=== PATIENT | female | born 1975 | race Caucasian/White ===

== ENCOUNTER → 2018-01-10 | Outpatient (CLI) | payer OTHER ==
[2013-11-11 07:49] VITALS: BP 131/84
--- NOTE | 2018-01-10 15:40 | MG ---
HISTORY: SCREENING Comparison: October 30, 2015 and September 11, 2008 FINDINGS: Bilateral CC and MLO projections of the right and left breast were obtained. Scattered fibroglandula r tissue is seen to be present without significant interval change. No suspicious architectural dist ortion, mass or clustered microcalcifications can be observed to suggest malignancy. No skin thicken ing or nipple retraction is appreciated. No pathological lymphadenopathy can be identified. Benign- appearing calcifications are noted within the right and left breast. IMPRESSION: NO RADIOGRAPHIC EVIDENCE OF MALIGNANCY. ACR CATEGORY 2 - benign findings. FOLLOW-UP EXAM 1 YEAR. Diagnostic CAD was utilized and reviewed. * 0 (ZERO) - ASSESSMENT INCOMPLETE; ADDITIONAL IMAGING IS NEEDED. * 1/ (ONE) - NEGATIVE. * 2/II (TWO) - BENIGN FINDINGS. * 3/III (THREE) - PROBABLY BENIGN FINDING; SHORT INTERVAL FOLLOW-UP SUGGESTED. * 4/IV (FOUR) - SUSPICIOUS ABNORMALITY; BIOPSY SHOULD BE CONSIDERED. * 5/V - HIGHLY SUSPICIOUS OF MALIGNANCY; BIOPSY SHOULD BE PERFORMED. A NEGATIVE X-RAY REPORT SHOULD NOT DELAY BIOPSY IF A DOMINANT OR CLINICALLY SUSPICIOUS MASS IS PRESENT; 4 TO 8 PERCENT OF CANCERS ARE NOT IDENTIFIED BY X-RAY. A NEGA TIVE REPORT MAY REINFORCE THE CLINICAL IMPRESSION. ADENOSIS AND DENSE BREASTS MAY OBSCURE AN UNDERLY ING NEOPLASM. Reported By:
== END ==
LOC: RAD 08:54
PROVIDERS: ATTEND Obstetrics & Gynecology
DX: Z12.31 Encounter for screening mammogram for malignant neoplasm of breast (principal)
CPT/HCPCS: 77067

== ENCOUNTER 2020-12-19 16:44 | Observation (INO) ==
[2020-12-19] MEDS ORDERED: NS 1000 ML 1,000 ML IV ONE (17:02)
[2020-12-19] MEDS ORDERED: ZOFRAN INJ 4 MG VIAL IVP ONE ×2 (17:02→17:46)
[2020-12-19] MEDS ORDERED: ZOFRAN INJ 4 MG VIAL ONE ×3 (17:06→22:54)
[2020-12-19] MEDS ORDERED: NS 1000 ML 1,000 ML ONE (17:06)
--- NOTE | 2020-12-19 17:46 | DR.NAUSEAF ---
HPI Time Seen Time Seen by Provider: 12/19/20 17:45 Primary Care Physician Primary Care Physician: CHEYANNE HALL HPI Comment HPI Comment: PATIENT WITH A HISTORY OF VERTIGO COMPLAINS OF DIZZINESS, ROOM SPINNING 30 MINUTES PRIOR TO ARRIVAL ASSOCIATED WITH FREQUENT EMESIS. DENIES HEADACHE, BLURRED VISION AND ABDOMINAL PAIN. Complaints Chief Complaint Doctors Comments: FREQUENT EPISODES OF EMESIS ASSOCIATED WITH VERTIGO Chief Complaint:: PATIENT CAME TO ER REPORTS SUDDEN ONSET N/V DIZZINESS WHILE LYING IN TANNING BED. REPORTS LAST TIME SHE WAS DX WITH VERTIGO. 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 Other Past Surgical History Comment: REMOVAL OF CLOTS IN LUNGS, CARDIAC STENT, D&C Family History History of Family Medical Conditions: No Family Medical History: Diabetes Mellitus, Cancer, Coronary Artery Disease, Heart Failure, Sudden Cardiac and Hypertension Social History Alcohol Use: None Do you use any recreational Drugs:: No Lives With: Spouse Lives Where: Home Travel Risk Coronavirus risk:travel/contact w/high risk person: No Has patient experienced Coronavirus symptoms: No Infectious screening In the last 2 months have you had wt loss of >10#?: NO Have you had fever, night sweats or hemotysis?: No Have you traveled outside the country in the last 6 months?: No Isolation: Standard ROS Review of Systems Constitutional: No Symptoms Reported Eyes: No Symptoms Reported ENTM: No Symptoms Reported Respiratoy: No Symptoms Reported Cardiovascular: No Symptoms Reported Gastrointestinal/Abdominal: See HPI, Nausea and Vomiting Genitourinary: No Symptoms Reported Neurological: Dizziness Musculoskeletal: No Symptoms Reported Integumentary: No Symptoms Reported Hematologic/Lymphatic: No Symptoms Reported Endocrine: No Symptoms Reported Psychiatric: No Symptoms Reported All Other Systems: Reviewed and Negative PE Vital Signs Vitals: Temperature 97.5 F Pulse Rate 73 Respiratory Rate 21 Blood Pressure [Left Arm] 132/66 Blood Pressure 124/59 O2 Sat by Pulse Oximetry 97 General Limitations: No Limitations Head Head Exam: Normal Inspection and Atraumatic Eyes Eye exam: Normal Appearance, PERRL and EOMI ENT ENT Exam: Normal Exam and Normal Oropharynx Neck Neck Exam: Normal Inspection, Full ROM and Trachea Midline Chest Chest Inspection: Normal Inspection and Symmetric Chest Wall Rise Respiratory Respiratory Exam: Normal Lung Sounds Bilat Respiratory Exam: Bilateral: Clear to Auscultation Cardiovascular Cardiovascular Exam: Regular Rate and Normal Rhythm Abdominal Exam Abdominal Exam: Normal Inspection, Normal Bowel Sounds and Soft (NONTENDER) Extremities Extremities Exam: Normal Inspection and Full ROM Back Back Exam: Normal Inspection and Full ROM Psychiatric Psychiatric Exam: Normal Affect and Normal Mood MDM Differential Diagnosis Differential Diagnosis Comment: VERTIGO, INTRACTABLE EMESIS, DEHYDRATION COURSE Treatment Treatment: IV BOLUS NORMAL SALINE 1 LITER/HR, ZOFRAN 4MG IV X 2 DOSES, PHENERGAN 25MG IM Reevaluation 1st: Unchanged Consultation Call Returned: 19:40 Consultation Comments: DISCUSSED FINDINGS WITH DR BRUNNER FOR OBSERVATION Education/Counseling Educated On: Treatment and Diagnosis ROR Labs Reviewed Laboratory Results Reviewed?: Yes Result Diagrams: 12/19/20 17:11 12/19/20 17:11 Laboratory: WBC 9.2 X10^3/uL (3.6-10.0) 12/19/20 17:11 RBC 4.37 X10^6/uL (3.5-5.4) 12/19/20 17:11 Hgb 13.3 g/dL (12.0-16.0) 12/19/20 17:11 Hct 39.3 % (36.0-47.0) 12/19/20 17:11 MCV 89.9 fL (80.0-100.0) 12/19/20 17:11 MCH 30.4 pg (27.0-34.0) 12/19/20 17:11 MCHC 33.8 g/dL (33.0-35.0) 12/19/20 17:11 RDW 14.6 % (11.6-16.5) 12/19/20 17:11 Plt Count 181 X10^3/uL (150.0-450.0) 12/19/20 17:11 MPV 9.4 fL (7.4-11.0) 12/19/20 17:11 Neut % (Auto) 51.5 % (42.0-75.0) 12/19/20 17:11 Lymph % (Auto) 38.9 % (21.0-51.0) 12/19/20 17:11 [place] % (Auto) 6.5 % (0.0-13.0) 12/19/20 17:11 Eos % (Auto) 1.9 % (0.9-2.9) 12/19/20 17:11 Baso % (Auto) 1.2 % (0.2-1.0) H 12/19/20 17:11 Neut # (Auto) 4.7 x10^3/uL (2.2-4.8) 12/19/20 17:11 Lymph # (Auto) 3.6 X10^3/uL (1.3-2.9) H 12/19/20 17:11 [place] # (Auto) 0.6 x10^3/uL (0.3-0.8) 12/19/20 17:11 Eos # (Auto) 0.2 x10^3/uL (0.0-0.2) 12/19/20 17:11 Baso # (Auto) 0.1 X10^3/uL (0.0-0.1) 12/19/20 17:11 Absolute Nucleated RBC 0.1 /100WBC 12/19/20 17:11 Sodium 143 mmol/L (136-145) 12/19/20 17:11 Corrected Sodium 144 mmol/L (136-145) 12/19/20 17:11 Potassium 3.4 mmol/L (3.5-5.1) L 12/19/20 17:11 Chloride 107 mmol/L (98-107) 12/19/20 17:11 Carbon Dioxide 27.6 mmol/L (21-32) 12/19/20 17:11 BUN 28 mg/dL (7-18) H 12/19/20 17:11 Creatinine 1.35 mg/dL (0.55-1.02) H 12/19/20 17:11 Est GFR (MDRD) Af Amer 54 (>60) L 12/19/20 17:11 Est GFR (MDRD) Non-Af 45 (>60) L 12/19/20 17:11 Glucose 125 mg/dL (65-99) H 12/19/20 17:11 Calcium 9.1 mg/dL (8.5-10.1) 12/19/20 17:11 Corrected Calcium TNP 12/19/20 17:11 Total Bilirubin 0.30 mg/dL (0.2-1.0) 12/19/20 17:11 AST 32 Units/L (15-37) 12/19/20 17:11 ALT 41 Units/L (12-78) 12/19/20 17:11 Alkaline Phosphatase 97 Units/L (46-116) 12/19/20 17:11 Creatine Kinase 551 Units/L (26-192) H 12/19/20 17:11 CK-MB (CK-2) 2.6 ng/mL (0-4.0) 12/19/20 17:11 CK/CKMB % Calc 0.5 % (<4) 12/19/20 17:11 Troponin I < 0.02 ng/mL (0-1.5) 12/19/20 17:11 Troponin I Cancelled 12/19/20 17:11 Total Protein 7.5 g/dL (6.4-8.2) 12/19/20 17:11 Albumin 3.9 g/dL (3.4-5.0) 12/19/20 17:11 Globulin 3.6 g/dL (2.5-4.5) 12/19/20 17:11 Albumin/Globulin Ratio 1.1 Ratio (1.1-2.1) 12/19/20 17:11 Amylase 47 Units/L (25-115) 12/19/20 17:11 Lipase 189 Units/L (73-393) 12/19/20 17:11 HCG, Qual Negative <10 mIU/mL 12/19/20 17:11 Specimen Type Clean catch urine 12/19/20 20:15 Urine Color Yellow (YELLOW) 12/19/20 20:15 Urine Appearance Clear (CLEAR) 12/19/20 20:15 Urine pH 6.0 (5.0 - 8.0) 12/19/20 20:15 Ur Specific [place] 1.020 (1.000-1.030) 12/19/20 20:15 Urine Protein 1+ (NEGATIVE) 12/19/20 20:15 Urine Glucose (UA) Negative (NEGATIVE) 12/19/20 20:15 Urine Ketones Negative (NEGATIVE) 12/19/20 20:15 Urine Occult Blood 1+ (NEGATIVE) 12/19/20 20:15 Urine Nitrite Negative (NEGATIVE) 12/19/20 20:15 Urine Bilirubin Negative (NEGATIVE) 12/19/20 20:15 Urine Urobilinogen Normal (NORMAL) 12/19/20 20:15 Ur Leukocyte Esterase 1+ (NEGATIVE) 12/19/20 20:15 Urine RBC 0-2 /HPF (0-3) 12/19/20 20:15 Urine WBC 3-5 /HPF (0-5) 12/19/20 20:15 Ur Squamous Epith Cells Few /HPF (NEGATIVE) 12/19/20 20:15 Urine Bacteria Trace /HPF (NEGATIVE) 12/19/20 20:15 Ur Culture Indicated? No/not indicated 12/19/20 20:15 XRAY XRAY Interpreted by: Radiologist (HEAD CT SCAN NO ACUTE INTRACRANIAL ABNORMALITY) Opioid Opioid Risk Tool Age (Jagdeep box if 16-45): No History of Preadolescent Sexual Abuse: No Total: 0 Total Score Risk Category: Low Risk Copyright: Eben KRUSE predicting aberrant behaviors Diagnosis Discharge Problem: Vertigo, Intractable vomiting
[2020-12-19] MEDS ORDERED: PHENERGAN INJ 25 MG IM ONE ×2 (17:47→17:49)
[2020-12-19 17:51] LABS: BASOPHILS # (AUTO) 0.1 X10^3/uL (0.0-0.1); BASOPHILS % (AUTO) 1.2 % (0.2-1.0); EOSINOPHILS # (AUTO) 0.2 x10^3/uL (0.0-0.2); EOSINOPHILS % (AUTO) 1.9 % (0.9-2.9); HEMATOCRIT 39.3 % (36.0-47.0); HEMOGLOBIN 13.3 g/dL (12.0-16.0); LYMPHOCYTES # (AUTO) 3.6 X10^3/uL (1.3-2.9); LYMPHOCYTES % (AUTO) 38.9 % (21.0-51.0); MEAN CORPUSCULAR HEMOGLOBIN 30.4 pg (27.0-34.0); MEAN CORPUSCULAR HGB CONC 33.8 g/dL (33.0-35.0); MEAN CORPUSCULAR VOLUME 89.9 fL (80.0-100.0); MEAN PLATELET VOLUME 9.4 fL (7.4-11.0); MONOCYTES # (AUTO) 0.6 x10^3/uL (0.3-0.8); MONOCYTES % (AUTO) 6.5 % (0.0-13.0); NEUTROPHILS # (AUTO) 4.7 x10^3/uL (2.2-4.8); NEUTROPHILS % (AUTO) 51.5 % (42.0-75.0); PLATELET COUNT 181 X10^3/uL (150.0-450.0); RED BLOOD COUNT 4.37 X10^6/uL (3.5-5.4); RED CELL DISTRIBUTION WIDTH 14.6 % (11.6-16.5); WHITE BLOOD COUNT 9.2 X10^3/uL (3.6-10.0)
[2020-12-19 18:00] LABS: SERUM PREGNANCY TEST, QUAL NEGATIVE <10 mIU/mL
[2020-12-19 18:07] LABS: AMYLASE 47 Units/L (25-115); LIPASE 189 Units/L (73-393)
[2020-12-19 18:09] LABS: BLOOD UREA NITROGEN 28 mg/dL (7-18); CALCIUM 9.1 mg/dL (8.5-10.1); CARBON DIOXIDE 27.6 mmol/L (21-32); CHLORIDE 107 mmol/L (98-107); COR NA(FOR HYPERGLY) 144 mmol/L (136-145); CREATININE 1.35 mg/dL (0.55-1.02); SODIUM 143 mmol/L (136-145); TROPONIN I < 0.02 ng/mL (0-1.5); eGFR NON BLACK RACES 45 (>60)
[2020-12-19 18:10] LABS: ALANINE AMINOTRANSFERASE 41 Units/L (12-78); ALBUMIN 3.9 g/dL (3.4-5.0); ALKALINE PHOSPHATASE 97 Units/L (46-116); ASPARTATE AMINO TRANSFERASE 32 Units/L (15-37); CKMB % 0.5 % (<4); CREATINE KINASE 551 Units/L (26-192); CREATINE KINASE MB 2.6 ng/mL (0-4.0); TOTAL PROTEIN 7.5 g/dL (6.4-8.2)
[2020-12-19] MEDS ORDERED: ANTIVERT TAB 25 MG PO ONE (19:48)
[2020-12-19] MEDS ORDERED: ANTIVERT TAB 25 MG ONE (19:51)
[2020-12-19 20:24] LABS: BILIRUBIN,URINE NEGATIVE (NEGATIVE); BLOOD/HEMOGLOBIN,URINE 1+ (NEGATIVE); GLUCOSE, URINE NEGATIVE (NEGATIVE); KETONES,URINE NEGATIVE (NEGATIVE); LEUKOCYTE ESTERASE ,URINE 1+ (NEGATIVE); NITRITES,URINE NEGATIVE (NEGATIVE); PROTEIN,URINE 1+ (NEGATIVE); UROBILINOGEN,URINE NORMAL (NORMAL)
[2020-12-19 20:41] LABS: COLOR,URINE YELLOW (YELLOW)
[2020-12-19 20:42] LABS: APPEARANCE,URINE CLEAR (CLEAR); BACTERIA,URINE TRACE /HPF (NEGATIVE); RBC,URINE 0-2 /HPF (0-3); SQUAMOUS EPITHELIAL CELL,UR FEW /HPF (NEGATIVE)
--- NOTE | 2020-12-19 20:42 | CT ---
EXAM: HEAD CT WITHOUT INTRAVENOUS CONTRASTHISTORY: Nausea and vomiting. Dizziness.TECHNIQUE: Spiral axial CT images are obtained through the brain without the administration of intravenous contrast. Additional sagittal and coronal reformatted images are reconstructed.DOSIMETRY: Total DLP 1187.8 mGycm; CTDI 70.8 mGyCOMPARISON: None available.FINDINGS:The centrum semiovale, basal ganglia, cerebellum, and brainstem are grossly unremarkable for a noncontrast CT scan.There is no acute intracranial hemorrhage, discernible acute infarction, mass lesion, midline shift, or hydrocephalus seen. No extra-axial mass or abnormal fluid collection is seen.The calvarium is intact. The partially imaged paranasal sinuses, middle ear cavities, and mastoid air cells are clear.IMPRESSION:1. No intracranial hemorrhage, discernible acute infarction, mass lesions, midline shift, mass effect or hydrocephalus seen.2. Consider followup evaluation with MRI /MRA imaging for further assessment as clinically warranted.Electronically signed by: Huy Burris (Dec 19, 2020 20:41:11)
[2020-12-19] MEDS: KLONOPIN TAB 0.5 MG PO PRN (22:48)
[2020-12-19 22:49] VITALS: BMI 39.4
[2020-12-19] MEDS ORDERED: NS + KCL 20 MEQ/L 1,000 ML IV ONE (22:54)
[2020-12-19] MEDS: NS + KCL 20 MEQ/L 1,000 ML IV SCH (23:02)
[2020-12-19] MEDS: ZOFRAN INJ 4 MG VIAL IVP PRN (23:02)
[2020-12-20 05:01] LABS: BLOOD UREA NITROGEN 18 mg/dL (7-18); CARBON DIOXIDE 26.6 mmol/L (21-32); CHLORIDE 110 mmol/L (98-107); CREATININE 0.92 mg/dL (0.55-1.02); SODIUM 145 mmol/L (136-145); eGFR NON BLACK RACES > 60 (>60)
[2020-12-20] MEDS: NS + KCL 20 MEQ/L 1,000 ML IV SCH (06:56)
[2020-12-20] MEDS: ELIQUIS PO SCH ×2 (08:45→21:52)
[2020-12-20] MEDS: TOPROL XL PO SCH (08:46)
[2020-12-20] MEDS: ZOFRAN INJ 4 MG VIAL IVP PRN (08:47)
--- NOTE | 2020-12-20 09:55 | RAD ---
HISTORYcovidSTUDYPortable AP chestCOMPARISONFebruary 2020FINDINGSContinued normal heart size and contour with clear lungs and pleural spaces.IMPRESSIONNo interval change; no acute chest findings.Electronically signed by: SONDRA ERWIN (Dec 20, 2020 09:53:45)
[2020-12-20] MEDS ORDERED: ZANAFLEX PO PRN (10:25)
[2020-12-20] MEDS ORDERED: ULTRAM PO PRN (10:25)
[2020-12-20] MEDS ORDERED: ANTIVERT TAB 25 MG PO ONE (10:29)
[2020-12-20] MEDS ORDERED: ANTIVERT TAB 25 MG PO PRN (10:30)
--- NOTE | 2020-12-20 10:39 | DR.H&P ---
H&P History & Physical for Day of: H&P Date: 12/20/20 Chief Complaint Chief Complaint: Vertigo/Dizziness Nausea/Vomiting Allergies Allergies Allergy/AdvReac Type Severity Reaction Status Date / Time No Known Drug Allergies Allergy Verified 12/19/20 17:41 History of Present Illness History of Present Illness: Pt is a 45 year old female past medical history OR, Pulmonary embolism, HTN, presenting after having severe vertigo with associated persistent nausea and vomiting that started yesterday evening after work. She states that she went to the tanning bed and when she laid down she immediately had vertigo and had to leave. She has had episode occur few years prior and had seen ENT that prescribed a benzodiazepine that helped. She reports sinus congestion. Labs/imaging: Wbc 9.2, Hgb 13.3, Plt 181, Na 145, K 4.2, Creatinine 0.92, Glucose 103, COVID-19 positive, CT-head negative for acute findings. Pt was given IV phenergan and Zofran without much symptoms relief, she did start feeling some improvement with meclizine. This morning she is still feeling dizzy with any rotation of her head but does state better than last night. She was started on IVF NS+KCl@125 ml/h, will reduce to 75ml/h. Improvement with meclizine, will give another dose and then schedule prn. Order Valium 5mg BID. Restart home medications. Pt tested positive for COVID-19, however this may be due to her having infection 2 months ago that had resolved and CXR this morning revealed no pneumonia. Will hold on treatment protocol. Otherwise continue with current treatment plan. Monitor and follow up labs/imaging in the morning. Past Medical History Past Medical History: Dyslipidemia, Hypertension and OR Past Surgical History Surgical History: Cholecystectomy Family History Family Medical History: Cancer and OR Social History Alcohol Use: None Medications Home Medications: No Known Drug Allergies Allergy (Verified 12/19/20 17:41) CONTINUE taking the following medications apixaban [Eliquis] 2.5 mg PO BID 12/19/20 [History] diclofenac sodium 50 mg PO BID 12/19/20 [History] diclofenac sodium [Voltaren] 50 mg PO BID 12/19/20 [History] duloxetine 60 mg PO DAILY 12/19/20 [History] ferrous sulfate 325 mg PO DAILY 12/19/20 [History] ondansetron HCl 4 mg PO Q8H PRN 12/19/20 [History] tizanidine 4 mg PO HS PRN 12/19/20 [History] tramadol 50 mg PO BID PRN 12/19/20 [History] trazodone 50 mg PO HS 12/19/20 [History] Labs Result Diagrams: 12/19/20 17:11 12/20/20 04:19 Labs: Laboratory WBC 9.2 X10^3/uL (3.6-10.0) 12/19/20 17:11 RBC 4.37 X10^6/uL (3.5-5.4) 12/19/20 17:11 Hgb 13.3 g/dL (12.0-16.0) 12/19/20 17:11 Hct 39.3 % (36.0-47.0) 12/19/20 17:11 MCV 89.9 fL (80.0-100.0) 12/19/20 17:11 MCH 30.4 pg (27.0-34.0) 12/19/20 17:11 MCHC 33.8 g/dL (33.0-35.0) 12/19/20 17:11 RDW 14.6 % (11.6-16.5) 12/19/20 17:11 Plt Count 181 X10^3/uL (150.0-450.0) 12/19/20 17:11 MPV 9.4 fL (7.4-11.0) 12/19/20 17:11 Neut % (Auto) 51.5 % (42.0-75.0) 12/19/20 17:11 Lymph % (Auto) 38.9 % (21.0-51.0) 12/19/20 17:11 [place] % (Auto) 6.5 % (0.0-13.0) 12/19/20 17:11 Eos % (Auto) 1.9 % (0.9-2.9) 12/19/20 17:11 Baso % (Auto) 1.2 % (0.2-1.0) H 12/19/20 17:11 Neut # (Auto) 4.7 x10^3/uL (2.2-4.8) 12/19/20 17:11 Lymph # (Auto) 3.6 X10^3/uL (1.3-2.9) H 12/19/20 17:11 [place] # (Auto) 0.6 x10^3/uL (0.3-0.8) 12/19/20 17:11 Eos # (Auto) 0.2 x10^3/uL (0.0-0.2) 12/19/20 17:11 Baso # (Auto) 0.1 X10^3/uL (0.0-0.1) 12/19/20 17:11 Absolute Nucleated RBC 0.1 /100WBC 12/19/20 17:11 Sodium 145 mmol/L (136-145) 12/20/20 04:19 Corrected Sodium TNP 12/20/20 04:19 Potassium 4.2 mmol/L (3.5-5.1) 12/20/20 04:19 Chloride 110 mmol/L (98-107) H 12/20/20 04:19 Carbon Dioxide 26.6 mmol/L (21-32) 12/20/20 04:19 BUN 18 mg/dL (7-18) 12/20/20 04:19 Creatinine 0.92 mg/dL (0.55-1.02) 12/20/20 04:19 Est GFR (MDRD) Af Amer > 60 (>60) 12/20/20 04:19 Est GFR (MDRD) Non-Af > 60 (>60) 12/20/20 04:19 Glucose 103 mg/dL (65-99) H 12/20/20 04:19 Calcium 9.0 mg/dL (8.5-10.1) 12/20/20 04:19 Corrected Calcium TNP 12/19/20 17:11 Total Bilirubin 0.30 mg/dL (0.2-1.0) 12/19/20 17:11 AST 32 Units/L (15-37) 12/19/20 17:11 ALT 41 Units/L (12-78) 12/19/20 17:11 Alkaline Phosphatase 97 Units/L (46-116) 12/19/20 17:11 Creatine Kinase 551 Units/L (26-192) H 12/19/20 17:11 CK-MB (CK-2) 2.6 ng/mL (0-4.0) 12/19/20 17:11 CK/CKMB % Calc 0.5 % (<4) 12/19/20 17:11 Troponin I < 0.02 ng/mL (0-1.5) 12/19/20 17:11 Troponin I Cancelled 12/19/20 17:11 Total Protein 7.5 g/dL (6.4-8.2) 12/19/20 17:11 Albumin 3.9 g/dL (3.4-5.0) 12/19/20 17:11 Globulin 3.6 g/dL (2.5-4.5) 12/19/20 17:11 Albumin/Globulin Ratio 1.1 Ratio (1.1-2.1) 12/19/20 17:11 Amylase 47 Units/L (25-115) 12/19/20 17:11 Lipase 189 Units/L (73-393) 12/19/20 17:11 HCG, Qual Negative <10 mIU/mL 12/19/20 17:11 Specimen Type Clean catch urine 12/19/20 20:15 Urine Color Yellow (YELLOW) 12/19/20 20:15 Urine Appearance Clear (CLEAR) 12/19/20 20:15 Urine pH 6.0 (5.0 - 8.0) 12/19/20 20:15 Ur Specific [place] 1.020 (1.000-1.030) 12/19/20 20:15 Urine Protein 1+ (NEGATIVE) 12/19/20 20:15 Urine Glucose (UA) Negative (NEGATIVE) 12/19/20 20:15 Urine Ketones Negative (NEGATIVE) 12/19/20 20:15 Urine Occult Blood 1+ (NEGATIVE) 12/19/20 20:15 Urine Nitrite Negative (NEGATIVE) 12/19/20 20:15 Urine Bilirubin Negative (NEGATIVE) 12/19/20 20:15 Urine Urobilinogen Normal (NORMAL) 12/19/20 20:15 Ur Leukocyte Esterase 1+ (NEGATIVE) 12/19/20 20:15 Urine RBC 0-2 /HPF (0-3) 12/19/20 20:15 Urine WBC 3-5 /HPF (0-5) 12/19/20 20:15 Ur Squamous Epith Cells Few /HPF (NEGATIVE) 12/19/20 20:15 Urine Bacteria Trace /HPF (NEGATIVE) 12/19/20 20:15 Ur Culture Indicated? No/not indicated 12/19/20 20:15 SARS CoV-2 RNA Rapid OLEGARIO Positive (NEGATIVE) A 12/19/20 20:40 Review of Systems Constitutional: No Symptoms Reported Eyes: No Symptoms Reported ENT: No Symptoms Reported Respiratory: No Symptoms Reported Cardiovascular: No Symptoms Reported Gastrointestinal: Nausea and Vomiting; denies Abdominal Pain, Diarrhea and Constipation Genitourinary: No Symptoms Reported Musculoskeletal: No Symptoms Reported Skin: No Symptoms Reported Neurological: Other (Dizziness, Vertigo) Physical Exam Vital Signs: Temperature 98.0 F Pulse Rate [Left Radial] 79 Pulse Rate 73 Respiratory Rate 20 Blood Pressure [Right Arm] 137/63 Blood Pressure [Left Arm] 95/54 Blood Pressure 124/59 O2 Sat by Pulse Oximetry 99 Oriented: Normal Eyes: Normal Ear: Normal Nose: Normal Throat: Normal Respiratory: Clear Throughout Cardiovascular: Normal : Normal Auscultation: Bowel Sounds: Normal Palpation: Normal Tenderness: Normal Skin: Normal Musculoskeletal: Normal Psychiatric: Normal Mood Description: Calm and Appropriate Affect: Normal Speech Pattern: Clear and Appropriate Assessment/Plan (1) Vertigo: Status: Acute Plan: Order Meclizine, Valium Antiemetics prn (2) Intractable vomiting: Status: Acute Review H&P Reviewed: Yes Patient was examined?: Yes
[2020-12-20] MEDS: VALIUM PO SCH ×2 (10:53→21:52)
[2020-12-20] MEDS ORDERED: MICRO K EXTEN CAP 10 MEQ PO SCH (11:00)
[2020-12-20] MEDS: NS 1000 ML 1,000 ML IV SCH (15:39)
[2020-12-20] MEDS: KLONOPIN TAB 0.5 MG PO PRN (15:39)
[2020-12-20] MEDS: PREVACID PO SCH (15:43)
[2020-12-20] MEDS ORDERED: PREVACID PO ONE (15:47)
[2020-12-20] MEDS ORDERED: ZOCOR TAB 10 MG PO SCH (21:00)
[2020-12-20] MEDS ORDERED: DESYREL PO SCH (21:00)
[2020-12-21] MEDS: NS 1000 ML 1,000 ML IV SCH (03:00)
[2020-12-21 04:18] LABS: BASOPHILS # (AUTO) 0.1 X10^3/uL (0.0-0.1); BASOPHILS % (AUTO) 1.5 % (0.2-1.0); EOSINOPHILS # (AUTO) 0.1 x10^3/uL (0.0-0.2); EOSINOPHILS % (AUTO) 1.7 % (0.9-2.9); HEMATOCRIT 40.3 % (36.0-47.0); HEMOGLOBIN 13.3 g/dL (12.0-16.0); LYMPHOCYTES # (AUTO) 3.1 X10^3/uL (1.3-2.9); LYMPHOCYTES % (AUTO) 39.4 % (21.0-51.0); MEAN CORPUSCULAR HEMOGLOBIN 30.1 pg (27.0-34.0); MEAN CORPUSCULAR VOLUME 91.1 fL (80.0-100.0); MEAN PLATELET VOLUME 9.4 fL (7.4-11.0); MONOCYTES # (AUTO) 0.4 x10^3/uL (0.3-0.8); MONOCYTES % (AUTO) 5.7 % (0.0-13.0); NEUTROPHILS # (AUTO) 4.1 x10^3/uL (2.2-4.8); NEUTROPHILS % (AUTO) 51.7 % (42.0-75.0); PLATELET COUNT 174 X10^3/uL (150.0-450.0); RED BLOOD COUNT 4.42 X10^6/uL (3.5-5.4); RED CELL DISTRIBUTION WIDTH 14.6 % (11.6-16.5); WHITE BLOOD COUNT 7.9 X10^3/uL (3.6-10.0)
[2020-12-21 04:45] LABS: ALANINE AMINOTRANSFERASE 33 Units/L (12-78); ALBUMIN 3.3 g/dL (3.4-5.0); ALKALINE PHOSPHATASE 85 Units/L (46-116); ASPARTATE AMINO TRANSFERASE 22 Units/L (15-37); BLOOD UREA NITROGEN 14 mg/dL (7-18); CALCIUM 8.9 mg/dL (8.5-10.1); CARBON DIOXIDE 26.7 mmol/L (21-32); CHLORIDE 109 mmol/L (98-107); COR CA(FOR HYPOALB) 9.5 mg/dL (8.5-10.1); CREATININE 0.92 mg/dL (0.55-1.02); SODIUM 141 mmol/L (136-145); TOTAL PROTEIN 6.8 g/dL (6.4-8.2); eGFR NON BLACK RACES > 60 (>60)
[2020-12-21 08:22] VITALS: BP 144/76
[2020-12-21] MEDS: ELIQUIS PO SCH (08:59)
[2020-12-21] MEDS: VALIUM PO SCH (08:59)
[2020-12-21] MEDS: PREVACID PO SCH (08:59)
[2020-12-21] MEDS: TOPROL XL PO SCH (08:59)
[2020-12-21] MEDS ORDERED: CYMBALTA PO SCH (09:00)
[2020-12-21] MEDS ORDERED: SINGULAIR TAB 10 MG PO SCH (09:00)
[2020-12-21] MEDS ORDERED: ASPIRIN EC 81 MG PO SCH (09:00)
--- NOTE | 2020-12-21 09:43 | W.DIS.FURT ---
Summary of Discharge Discharge Summary of Date Date of Exam: 12/21/20 Admission Date Date of Admission: 12/19/20 Admission Diagnosis Patient Problems (Updated 12/19/20 @ 21:11 by Brice Bal) Vertigo (Acute) R42 Intractable vomiting (Acute) R11.10 Hospital Course: Pt is a 45 year old female past medical history MD, Pulmonary embolism, HTN, admitted for severe vertigo with associated persistent nausea and vomiting. Her hospital/treatment course included:IVF hydration, meclizine, valium, and antiemetics Zofran and phenergan prn. Pt responded well to treatments and had gradual improvement of symptoms. Labs/imaging: Wbc 7.9, Hgb 13.3, Plt 174, Na 141, K 3.9, Creatinine 0.92, Glucose 110, CT-head negative for acute intracranial findings. Pt has seen ENT in the past and last episode as severe was many years ago, at which she was told she had Meniere's disease. Rx meclizine, valium, and zofran. Pt discharged in stable condition, instructed to follow up with pcp in 3-5 days. Vital Signs: Vital Signs (72 hours) 12/19/20 16:46 12/19/20 17:00 12/19/20 17:15 Temperature 97.5 F L Pulse Rate 103 H 84 78 Pulse Rate [Left Radial] Respiratory Rate 18 26 H Blood Pressure 149/75 133/63 Blood Pressure [Left Arm] Blood Pressure [Right Arm] O2 Sat by Pulse Oximetry 97 96 97 12/19/20 17:30 12/19/20 17:45 12/19/20 18:00 Temperature Pulse Rate 78 78 70 Pulse Rate [Left Radial] Respiratory Rate 13 38 H 26 H Blood Pressure 125/66 127/58 Blood Pressure [Left Arm] Blood Pressure [Right Arm] O2 Sat by Pulse Oximetry 96 98 100 12/19/20 18:15 12/19/20 18:30 12/19/20 18:46 Temperature Pulse Rate 69 62 55 L Pulse Rate [Left Radial] Respiratory Rate 20 22 30 H Blood Pressure 130/63 Blood Pressure [Left Arm] Blood Pressure [Right Arm] O2 Sat by Pulse Oximetry 98 95 96 12/19/20 19:00 12/19/20 19:16 12/19/20 19:30 Temperature Pulse Rate 67 68 62 Pulse Rate [Left Radial] Respiratory Rate 29 H 19 21 Blood Pressure 125/69 124/59 Blood Pressure [Left Arm] Blood Pressure [Right Arm] O2 Sat by Pulse Oximetry 95 97 97 12/19/20 19:45 12/19/20 20:10 12/19/20 20:15 Temperature Pulse Rate 65 82 73 Pulse Rate [Left Radial] Respiratory Rate 25 H 27 H 21 Blood Pressure Blood Pressure [Left Arm] Blood Pressure [Right Arm] O2 Sat by Pulse Oximetry 97 12/19/20 22:00 12/19/20 22:33 12/20/20 00:00 Temperature 98.2 F 98.2 F 98.7 F Pulse Rate Pulse Rate [Left Radial] 57 L 57 L 57 L Respiratory Rate 24 24 24 Blood Pressure Blood Pressure [Left Arm] 141/67 95/54 Blood Pressure [Right Arm] 141/67 95/54 O2 Sat by Pulse Oximetry 99 99 96 12/20/20 04:00 12/20/20 08:00 12/20/20 12:00 Temperature 98.1 F 98.0 F 97.9 F Pulse Rate Pulse Rate [Left Radial] 71 79 73 Respiratory Rate 24 20 15 Blood Pressure Blood Pressure [Left Arm] Blood Pressure [Right Arm] 141/65 137/63 131/71 O2 Sat by Pulse Oximetry 100 99 99 12/20/20 16:00 12/20/20 20:00 12/21/20 00:00 Temperature 98.3 F 98.1 F 98.2 F Pulse Rate Pulse Rate [Left Radial] 71 74 64 Respiratory Rate 17 23 23 Blood Pressure Blood Pressure [Left Arm] Blood Pressure [Right Arm] 125/66 136/63 126/71 O2 Sat by Pulse Oximetry 98 99 99 12/21/20 04:00 12/21/20 08:00 Temperature 97.8 F 98.0 F Pulse Rate Pulse Rate [Left Radial] 62 67 Respiratory Rate 28 H 17 Blood Pressure Blood Pressure [Left Arm] Blood Pressure [Right Arm] 133/71 144/76 O2 Sat by Pulse Oximetry 100 100 Labs: Laboratory Last Values WBC 7.9 X10^3/uL (3.6-10.0) 12/21/20 03:50 RBC 4.42 X10^6/uL (3.5-5.4) 12/21/20 03:50 Hgb 13.3 g/dL (12.0-16.0) 12/21/20 03:50 Hct 40.3 % (36.0-47.0) 12/21/20 03:50 MCV 91.1 fL (80.0-100.0) 12/21/20 03:50 MCH 30.1 pg (27.0-34.0) 12/21/20 03:50 MCHC 33.0 g/dL (33.0-35.0) 12/21/20 03:50 RDW 14.6 % (11.6-16.5) 12/21/20 03:50 Plt Count 174 X10^3/uL (150.0-450.0) 12/21/20 03:50 MPV 9.4 fL (7.4-11.0) 12/21/20 03:50 Neut % (Auto) 51.7 % (42.0-75.0) 12/21/20 03:50 Lymph % (Auto) 39.4 % (21.0-51.0) 12/21/20 03:50 [place] % (Auto) 5.7 % (0.0-13.0) 12/21/20 03:50 Eos % (Auto) 1.7 % (0.9-2.9) 12/21/20 03:50 Baso % (Auto) 1.5 % (0.2-1.0) H 12/21/20 03:50 Neut # (Auto) 4.1 x10^3/uL (2.2-4.8) 12/21/20 03:50 Lymph # (Auto) 3.1 X10^3/uL (1.3-2.9) H 12/21/20 03:50 [place] # (Auto) 0.4 x10^3/uL (0.3-0.8) 12/21/20 03:50 Eos # (Auto) 0.1 x10^3/uL (0.0-0.2) 12/21/20 03:50 Baso # (Auto) 0.1 X10^3/uL (0.0-0.1) 12/21/20 03:50 Absolute Nucleated RBC 0.0 /100WBC 12/21/20 03:50 Sodium 141 mmol/L (136-145) 12/21/20 03:50 Corrected Sodium TNP 12/21/20 03:50 Potassium 3.9 mmol/L (3.5-5.1) 12/21/20 03:50 Chloride 109 mmol/L (98-107) H 12/21/20 03:50 Carbon Dioxide 26.7 mmol/L (21-32) 12/21/20 03:50 BUN 14 mg/dL (7-18) 12/21/20 03:50 Creatinine 0.92 mg/dL (0.55-1.02) 12/21/20 03:50 Est GFR (MDRD) Af Amer > 60 (>60) 12/21/20 03:50 Est GFR (MDRD) Non-Af > 60 (>60) 12/21/20 03:50 Glucose 110 mg/dL (65-99) H 12/21/20 03:50 Calcium 8.9 mg/dL (8.5-10.1) 12/21/20 03:50 Corrected Calcium 9.5 mg/dL (8.5-10.1) 12/21/20 03:50 Total Bilirubin 0.30 mg/dL (0.2-1.0) 12/21/20 03:50 AST 22 Units/L (15-37) 12/21/20 03:50 ALT 33 Units/L (12-78) 12/21/20 03:50 Alkaline Phosphatase 85 Units/L (46-116) 12/21/20 03:50 Creatine Kinase 551 Units/L (26-192) H 12/19/20 17:11 CK-MB (CK-2) 2.6 ng/mL (0-4.0) 12/19/20 17:11 CK/CKMB % Calc 0.5 % (<4) 12/19/20 17:11 Troponin I < 0.02 ng/mL (0-1.5) 12/19/20 17:11 Troponin I Cancelled 12/19/20 17:11 Total Protein 6.8 g/dL (6.4-8.2) 12/21/20 03:50 Albumin 3.3 g/dL (3.4-5.0) L 12/21/20 03:50 Globulin 3.5 g/dL (2.5-4.5) 12/21/20 03:50 Albumin/Globulin Ratio 0.9 Ratio (1.1-2.1) L 12/21/20 03:50 Amylase 47 Units/L (25-115) 12/19/20 17:11 Lipase 189 Units/L (73-393) 12/19/20 17:11 HCG, Qual Negative <10 mIU/mL 12/19/20 17:11 Specimen Type Clean catch urine 12/19/20 20:15 Urine Color Yellow (YELLOW) 12/19/20 20:15 Urine Appearance Clear (CLEAR) 12/19/20 20:15 Urine pH 6.0 (5.0 - 8.0) 12/19/20 20:15 Ur Specific [place] 1.020 (1.000-1.030) 12/19/20 20:15 Urine Protein 1+ (NEGATIVE) 12/19/20 20:15 Urine Glucose (UA) Negative (NEGATIVE) 12/19/20 20:15 Urine Ketones Negative (NEGATIVE) 12/19/20 20:15 Urine Occult Blood 1+ (NEGATIVE) 12/19/20 20:15 Urine Nitrite Negative (NEGATIVE) 12/19/20 20:15 Urine Bilirubin Negative (NEGATIVE) 12/19/20 20:15 Urine Urobilinogen Normal (NORMAL) 12/19/20 20:15 Ur Leukocyte Esterase 1+ (NEGATIVE) 12/19/20 20:15 Urine RBC 0-2 /HPF (0-3) 12/19/20 20:15 Urine WBC 3-5 /HPF (0-5) 12/19/20 20:15 Ur Squamous Epith Cells Few /HPF (NEGATIVE) 12/19/20 20:15 Urine Bacteria Trace /HPF (NEGATIVE) 12/19/20 20:15 Ur Culture Indicated? No/not indicated 12/19/20 20:15 SARS CoV-2 RNA Rapid OLEGARIO Positive (NEGATIVE) A 12/19/20 20:40 Reason For Visit: INTRACTABLE N/V, VERTIGO Discharge Date Discharge Date: 12/21/20 Discharge Diagnosis All Active Problems (Updated 12/19/20 @ 21:11 by Brice Bal) Anxiety (Acute) Chest pain (Acute) Chest pain (Acute) Hypokalemia (Acute) Atrial fibrillation with RVR (Acute) Abnormal cardiac enzyme level (Acute) Vertigo (Acute) Intractable vomiting (Acute) Plan of Treatment: Continue with present treatment and follow up plan. Pt is to keep follow up appointment as instructed and take medications as ordered. Discharge Medications Discharge Medications: No Known Drug Allergies Allergy (Verified 12/19/20 17:41) CONTINUE taking the following medications Eliquis 2.5 mg PO BID 12/19/20 [History] diclofenac sodium 50 mg PO BID 12/19/20 [History] diclofenac sodium 50 mg PO BID 12/19/20 [History] duloxetine 60 mg PO DAILY 12/19/20 [History] ferrous sulfate 325 mg PO DAILY 12/19/20 [History] tizanidine 4 mg PO HS PRN 12/19/20 [History] tramadol 50 mg PO BID PRN 12/19/20 [History] trazodone 50 mg PO HS 12/19/20 [History] New Prescriptions diazepam 5 mg PO BID PRN 15 Days #30 tab MDD 2 tablets 12/21/20 [Rx] meclizine 25 mg PO BID PRN 15 Days #30 tab 12/21/20 [Rx] ondansetron HCl 4 mg PO Q8H PRN 10 Days #30 tab 12/21/20 [Rx] Follow up and Referral Follow Up: 1 Week Discharge Disposition Discharge Disposition: Home Discharge Condition: Stable Discharge Plan Discharge Plan Hospital Course: Pt is a 45 year old female past medical history MD, Pulmonary embolism, HTN, admitted for severe vertigo with associated persistent nausea and vomiting. Her hospital/treatment course included:IVF hydration, meclizine, valium, and antiemetics Zofran and phenergan prn. Pt responded well to treatments and had gradual improvement of symptoms. Labs/imaging: Wbc 7.9, Hgb 13.3, Plt 174, Na 141, K 3.9, Creatinine 0.92, Glucose 110, CT-head negative for acute intracranial findings. Pt has seen ENT in the past and last episode as severe was many years ago, at which she was told she had Meniere's disease. Rx meclizine, valium, and zofran. Pt discharged in stable condition, instructed to follow up with pcp in 3-5 days. Patient Disposition: 01 HOME, SELF-CARE Condition: Stable Health Concerns: Post Hospitalization: new medications and changes needed to prevent readmission or further decline. Pt educated and given instructions on all concerns. Plan of Treatment: Continue with present treatment and follow up plan. Pt is to keep follow up appointment as instructed and take medications as ordered. Prescriptions: New meclizine 25 mg Tablet 25 mg PO BID PRN15 Days Qty: 30 RF: 0 diazepam 5 mg Tablet 5 mg PO BID MDD 2 tablets PRN (Reason: Dizziness Or Vertigo) 15 Days Qty: 30 RF: 0 Continued metoprolol succinate 50 MG tablet extended release 24 hr 50 mg PO DAILY RF: 0 clonazepam 0.5 MG tablet 0.5 mg PO BID PRN (Reason: Anxiety) RF: 0 aspirin [Aspirin Low Dose] 81 MG tablet,delayed release (DR/EC) 81 mg PO DAILY RF: 0 ferrous sulfate 325 mg (65 mg iron) tablet 325 mg PO DAILY RF: 0 diclofenac sodium 50 mg tablet,delayed release (DR/EC) 50 mg PO BID RF: 0 Eliquis 2.5 mg tablet 2.5 mg PO BID RF: 0 trazodone 50 mg tablet 50 mg PO HS RF: 0 tizanidine 4 mg tablet 4 mg PO HS PRN (Reason: Muscle Spasm) RF: 0 tramadol 50 mg Tablet 50 mg PO BID PRNRF: 0 diclofenac sodium 50 mg Tablet,Delayed Release (Dr/Ec) 50 mg PO BID RF: 0 duloxetine 60 mg capsule,delayed release(DR/EC) 60 mg PO DAILY RF: 0 ondansetron HCl 4 mg tablet 4 mg PO Q8H PRN (Reason: Nausea And Vomiting) 10 Days Qty: 30 RF: 0 potassium chloride 10 mEq Capsule, Extended Release 10 meq PO QMWF RF: 0 simvastatin 10 mg tablet 10 mg PO HS RF: 0 lansoprazole 30 mg capsule,delayed release(DR/EC) 30 mg PO DAILY RF: 0 montelukast 10 mg tablet 10 mg PO DAILY RF: 0 ergocalciferol (vitamin D2) [Vitamin D2] 1,250 mcg (50,000 unit) Capsule 1,250 mcg PO .WEEKLY RF: 0 Orders to Discharge Patient Discharge Orders: Discharge (Routine); Ordered 12/21/20 Ordered By: Haseeb Francis Follow ups/Referrals Follow ups/Referrals: JASS HALL [Primary Care Provider] - 3 days Instructions Stand Alone Forms: Excuse From Work or School, Precautions for COVID19, Patient Portal, Social Distancing
== END 2020-12-21 11:35 | disposition home or self-care (01) ==
LOC: ER 16:45 → ICU 16:45
PROVIDERS: ADMIT Family Medicine; ATTEND Family Medicine
DX: R94.31 Abnormal electrocardiogram [ECG] [EKG]; R42 Dizziness and giddiness; R94.4 Abnormal results of kidney function studies; U07.1 COVID-19; Z86.16 Personal history of COVID-19; E87.6 Hypokalemia; E78.2 Mixed hyperlipidemia; R11.10 Vomiting, unspecified; I10 Essential (primary) hypertension; Z86.711 Personal history of pulmonary embolism